=== PATIENT | male | born 1950 | race Caucasian/White ===

== ENCOUNTER → 2017-02-06 | Outpatient (CLI) | payer MEDICARE ==
--- NOTE | 2017-02-09 07:41 | RAD ---
EXAM DESCRIPTION: Shoulder,Left 2 or More Views CLINICAL HISTORY: SHOULDER PN COMPARISON: None Available. TECHNIQUE: Four views of the left shoulder. FINDINGS: Advanced glenohumeral degenerative arthropathy with subchondral sclerosis and joint space narrowing as well as marginal osteophytes is present. No fracture or dislocation is seen. The AC joint is normally aligned. IMPRESSION: 1. Advanced degenerative changes left shoulder without acute fracture. Electronically signed by: Quirino Bonner MD 02/09/2017 7:40 AM CDT
== END | disposition home or self-care (01) ==
LOC: RAD 08:19
PROVIDERS: ATTEND Orthopaedic Surgery
DX: M25.512 Pain in left shoulder (principal)

== ENCOUNTER → 2017-02-09 | Outpatient (CLI) | payer MEDICARE ==
--- NOTE | 2017-02-09 18:52 | MRI ---
Procedure: MR SHOULDER WITHOUT IV CONTRAST Exam Date: 02/09/2017 12:00 AM CDT Ordering Provider: DANIEL GONZALEZ Clinical Indication: ROTATOR CUFF SYNDROME Comparison: None TECHNIQUE: Multiplanar, multi sequence MRI images of the left shoulder were obtained without intra-articular contrast. FINDINGS: Thinning of the supraspinatus and infraspinatus tendons yet no discrete tear. There is also partial interstitial tearing of the distal subscapularis tendon without full thickness component or retraction. Rotator cuff musculature demonstrates normal bulk yet there is increased edema signal seen within the supraspinatus more so than infraspinatus suggestive of muscular strain.. Marked resorptive cyst seen within the greater tuberosity. There is also full-thickness chondrosis seen within the superior humeral head with subtle subchondral cystic change and flattening of the superior humeral head. Findings are worrisome for early changes of avascular necrosis. There is also a large marginal rim osteophytes extending off the inferomedial humeral head. There is full-thickness chondrosis seen within the glenoid fossa as well with a type II B glenoid morphology. There is associated glenohumeral joint effusion and synovitis. Long head of the biceps is well situated within the intertubercular groove. Biceps labral anchor is intact. Diffuse labral degeneration is noted. Moderate degenerative changes of the acromioclavicular joint. No fluid seen within the subdeltoid/subacromial bursa. Type 2 acromion is noted. Glenohumeral joint cartilage is intact. No large joint effusion or loose body. Marrow signal is otherwise unremarkable without fracture or subluxation. IMPRESSION: 1. Moderate to advanced glenohumeral joint osteoarthritis with subtle findings of early avascular necrosis seen within the superior humeral head. There is a small joint effusion with synovitis also noted. There is glenoid expansion with a type II B glenoid morphology. 2. Partial interstitial tearing of the subscapularis tendon yet no high-grade partial or full-thickness rotator cuff tear. 3. Supraspinous more so than infraspinatus muscular strain. Electronically signed by: Jay Bianchi MD 02/09/2017 6:51 PM CDT
== END | disposition home or self-care (01) ==
LOC: MRI 13:03
PROVIDERS: ATTEND Orthopaedic Surgery
DX: M75.122 Complete rotator cuff tear or rupture of left shoulder, not specified as traumatic (principal)

== ENCOUNTER → 2017-02-23 | Outpatient (CLI) | payer MEDICARE | END | disposition home or self-care (01) | LOC: GMAL 11:20 | PROVIDERS: ATTEND Family Medicine | DX: D51.3 Other dietary vitamin B12 deficiency anemia (principal); R53.83 Other fatigue; E55.9 Vitamin D deficiency, unspecified ==

== ENCOUNTER → 2017-06-09 | Outpatient (CLI) | payer MEDICARE | LOC: GMAL 11:19 | PROVIDERS: ATTEND Family Medicine | DX: D51.3 Other dietary vitamin B12 deficiency anemia (principal); E55.9 Vitamin D deficiency, unspecified ==

== ENCOUNTER 2017-11-15 09:44 | Emergency (ER) | payer MEDICARE ==
[2017-11-15] MEDS ORDERED: KETOROLAC TROMETHAMINE INJ 30 MG/ML VIAL IV ONE (09:59)
[2017-11-15] MEDS ORDERED: SODIUM CHLORIDE 0.9% 1000ML 1,000 ML IVS ONE (10:00)
[2017-11-15] MEDS ORDERED: ONDANSETRON INJ 4 MG/2 ML VIAL IV ONE (10:00)
--- NOTE | 2017-11-15 10:04 | ED.PDOC ---
History of Present Illness - General Chief Complaint: Problem Stated Complaint: R flank discomfort Time Seen by Provider: 11/15/17 09:59 Source: patient Exam Limitations: no limitations - History of Present Illness Initial Comments: RIGHT FLANK PAIN, ONSET FOUR HRS AGO. HE RATES THE PAIN AT 8/10 AND RADIATES TO THE RIGHT LOWER QUADRANT ASSOCIATED WITH NAUSEA AND VOMITING. HE VOICES THAT HE HAS A HX OF KIDNEY STONES AND IT SURE FEELS LIKE ANOTHER ONE. Timing/Duration: just prior to arrival Quality: severe Onset Location: RLQ, right flank Radiation: RLQ Activites at Onset: rest Improving Factors: nothing Worsening Factors: nothing Associated Symptoms: nausea/vomiting Allergies/Adverse Reactions: Allergies Iodine Allergy (Verified 11/15/17 09:54) Home Medications: Ambulatory Orders Ketorolac Tromethamine 10 mg PO TID #15 tab 11/15/17 Ondansetron HCl [Zofran] 4 mg PO Q6HR #8 ml 11/15/17 Tramadol HCl 50 mg PO Q6HR #20 tab 11/15/17 Review of Systems - Review of Systems Constitutional: States: no symptoms reported EENTM: States: no symptoms reported Respiratory: States: no symptoms reported Cardiology: States: no symptoms reported Gastrointestinal/Abdominal: States: abdominal pain, nausea, vomiting Genitourinary: States: dysuria, pain Musculoskeletal: States: no symptoms reported Skin: States: no symptoms reported Neurological: States: no symptoms reported Endocrine: States: no symptoms reported Hematologic/Lymphatic: States: no symptoms reported Past Medical History (General) - Patient Medical History Hx Stroke: No Hx Cardiac Disorders: Yes - Cardiac stents; Hx DVT Hx Congestive Heart Failure: No Hx Hypertension: Yes Hx Diabetes: No Hx Renal Disease: - Hx kidney stones Hx MRSA: No - Vaccination History Hx Influenza Vaccination: Yes - 2017 Hx Pneumococcal Vaccination: Yes - Social History Hx Tobacco Use: No Family Medical History - Family History Father Family History: Unknown Living Status: Physical Exam - Physical Exam General Appearance: Alert, Anxious, Other - MODERATE TO ACUTE DISTRESS Eyes, Ears, Nose, Throat Exam: PERRL/EOMI, normal ENT inspection Neck: non-tender, full range of motion Cardiovascular/Respiratory: regular rate, rhythm, no M/R/G Gastrointestinal/Abdominal: normal bowel sounds, non tender, soft, no organomegaly, no pulsatile mass Rectal Exam: deferred Back Exam: normal inspection, no CVA tenderness, no vertebral tenderness, CVA tenderness (R) Extremity: normal range of motion, non-tender, normal inspection Neurologic: no motor/sensory deficits, alert, normal mood/affect Skin Exam: normal color Lymphatic: no adenopathy Progress - Progress Progress: 11/15/17 11:36 continues with RIGHT FLANK PAIN, THE URINE IS VERY DARK, WILL ORDER CT ABDOMEN AND PELVIS-STONE STUDY 11/15/17 12:30 CT ABDOMEN AND PELVIS REVEALS RIGHT HYDRONEPHROSIS AND THERE IS A SMALL CALCULOUS IN THE RIGHT MID URETER. THE URINE HAD TNTC RBC. THE PATIENT SEEMS MORE AT EASE AFTER 8 MG OF MS. THE PLAN RIGHT NOW IS OBSERVATION AND PAIN CONTROL. IF HE IS ABLE TO TOLERATE THE PAIN WILL PLAN ON DC OTHERWISE WILL DO AN OBSERVATION. 11/15/17 14:11 RE-ASSESED AND HE HAS BEEN SLEEPING FOR THE PAST HOUR. I HAVE SPOKEN WITH THE FAMILY AND THE PATIENT AND WILL TRY OUTPATIENT TREATMENT AND FOLLOW UP WITH DR. MORGAN Departure - Departure Clinical Impression: Kidney calculus Time of Disposition: 14:16 Disposition: Discharge to Home or Self Care Condition: Good Departure Forms: ED Discharge - Pt. Copy, Patient Portal Self Enrollment Instructions: DI for Kidney Stones Diet: resume usual diet Activity: walking as tolerated Referrals: Charles Ibarra III, MD [Primary Care Provider] - 1-2 Weeks DANIEL MORGAN [Referring] - 1-2 Weeks Prescriptions: Ondansetron HCl [Zofran] 4 mg PO Q6HR #8 ml Tramadol HCl 50 mg PO Q6HR #20 tab Ketorolac Tromethamine 10 mg PO TID #15 tab Home Medications: Ambulatory Orders Ketorolac Tromethamine 10 mg PO TID #15 tab 11/15/17 Ondansetron HCl [Zofran] 4 mg PO Q6HR #8 ml 11/15/17 Tramadol HCl 50 mg PO Q6HR #20 tab 11/15/17
[2017-11-15] MEDS ORDERED: MORPHINE SULFATE INJ 10 MG/ML VIAL IV ONE ×2 (10:47→12:04)
[2017-11-15] MEDS ORDERED: PROMETHAZINE HCL INJ 25 MG/ML VIAL IM ONE (12:05)
--- NOTE | 2017-11-15 12:17 | CT ---
PROCEDURE: Abdoment/Pelvis w/o Contrast HISTORY: right flank pain, stone study Indication: Same as above Comparison: None Technique: CT of the abdomen and pelvis was done without intravenous contrast. Images were obtained from the lung base to the level of the pubic symphysis in axial plane, followed by orthogonal sagittal and coronal reconstruction. Oral contrast was not given for the study. This exam was performed according to our departmental dose-optimization program, which includes automated exposure control, adjustment of the mA and/or KV according to the patient's size and/or use of iterative reconstruction technique. FINDINGS: Images through the lung bases do not show any focal infiltrates or pleural effusions. There is presence of a small calculus in the neck of the gallbladder. There is presence of multiple bilateral subcentimeter nonobstructive renal calculi. There is right-sided hydroureteronephrosis to the level of 5 mm right mid abdominal ureteral calculus seen at L3 vertebral mid body level The liver, pancreas, spleen and the bilateral adrenal glands appear unremarkable, given the limitation of lack of intravenous contrast. The urinary bladder is unremarkable, without any evidence of wall thickening, calculi or filling defects. The small bowel appears unremarkable, without any evidence of small bowel obstruction or bowel wall thickening. There is no CT evidence of acute appendicitis, pericecal inflammatory change or ileocecal mesenteric adenitis. The ileocecal junction appears unremarkable. There is no CT evidence of acute colonic diverticulitis or colitis or large bowel obstruction. There is large bowel diverticulosis There is no pathological lymphadenopathy in the retroperitoneum or in the pelvic region. There is no evidence of free fluid or free air in the abdomen or the pelvic region. There is no clinically significant abdominal aortic aneurysm. There is presence of a vascular stent in the left common and external iliac arteries Fat-containing right inguinal hernia is noted The visualized lumbar spine shows multilevel degenerative change and grade 1 anterolisthesis of L4 at L5. The paravertebral soft tissues are unremarkable. The remainder of the pelvic structures are unremarkable. IMPRESSION: There is presence of a small calculus in the neck of the gallbladder. There is presence of multiple bilateral subcentimeter nonobstructive renal calculi. There is right-sided hydroureteronephrosis to the level of 5 mm right mid abdominal ureteral calculus seen at L3 vertebral mid body level Electronically signed by: Pankaj Woodard MD 11/15/2017 12:16 PM CDT Workstation: [id number]
[2017-11-15 14:55] VITALS: O2SAT 98
[2017-11-15 15:26] VITALS: BP 137/78; TEMP 97
== END 2017-11-15 15:10 | disposition home or self-care (01) ==
LOC: ER 09:44
DX: N13.2 Hydronephrosis with renal and ureteral calculous obstruction (principal); Z91.041 Radiographic dye allergy status; I10 Essential (primary) hypertension; Z95.5 Presence of coronary angioplasty implant and graft; Z86.718 Personal history of other venous thrombosis and embolism
CPT/HCPCS: 36415; 74176; 80053; 81001; 85025; 87086; J1885; J2270; J2405; J2550; J7030

== ENCOUNTER → 2018-04-26 | Outpatient (CLI) | payer MEDICARE | LOC: GMATM 17:43 | PROVIDERS: ATTEND Nurse Practitioner Family | DX: R10.84 Generalized abdominal pain (principal) ==

== ENCOUNTER 2018-05-03 10:35 | Observation (INO) | payer MEDICARE ==
--- NOTE | 2018-05-03 10:56 | HP ---
SUPERVISING PHYSICIAN: Warren Shields MD CHIEF COMPLAINT: Weakness, dehydration. HISTORY OF PRESENT ILLNESS: Mr. Alvarez is a 67 year-old patient of Dr. Ibarra. He has been having frequent diarrhea daily for well over 2 weeks, associated with some nausea. He has been in to see Dr. Ibarra several times in the last few weeks and has had 3 rounds of infusions of fluids at [facility] for dehydration. His diarrhea has been persistent and Dr. Ibarra has been working the patient up with local studies. Dr. Ibarra requested the patient be placed in observation today as he was seen in the office in the morning and found again to be weak and have positive tilts and vital signs. The patient is now going to placed in observation for dehydration and fluid therapy. PAST MEDICAL HISTORY: 1. Paroxysmal atrial fibrillation on Xarelto. 2. Coronary artery disease. 3. 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 4. Left leg post thrombotic syndrome. 5. Hyperlipidemia. 6. History and physical. 7. Diabetes mellitus type 2 on oral therapy. 8. History of trigeminal neuralgia. 9. Hypertension with last echocardiogram June 23, 2017 showing a grade 1 diastolic dysfunction with an ejection fraction of 55%. PAST SURGICAL HISTORY: 1. Total right knee replacement in 2010. 2. Pin to left thigh in 2011. 3. Coronary stints to the circumflex in 2012. 4. Nerve avulsion for tridermal neuralgia in 2014. 5. Carpal tunnel release. 6. IVC filter replacement in 2010 due to left leg deep venous thrombosis and retrieval in 2015. 7. L4 to L5 microdiscectomy and rhizotomy. 8. Cataract extractions. 9. Hernia repair. CURRENT MEDICATIONS: 1. Simvastatin 40 mg daily. 2. Nystatin swish and swallow, 100,000 units q.i.d. 3. Nitrostat 0.4 mg every 15 minutes as needed. 4. Metformin 850 mg b.i.d. 5. Vitamin B12, 1000 mg daily. 6. Ciprofloxacin 500 mg b.i.d. 7. Vitamin D3, 1000 units daily. 8. Carvedilol 3.125 mg daily. 9. Hydrochlorothiazide 12.5 mg p.o. Thursday, Thursday, Thursday. 10. Hydrochlorothiazide 25 mg Thursday, Thursday, and Thursday. 11. Xarelto 20 mg daily. 12. Zofran 4 mg daily. ALLERGIES: Iodine, Tramadol, Lisinopril, Penicillin. FAMILY HISTORY: Father at age 67 due to brain cancer. Mother at age 95, advanced age. He has one sister who is , cancer at age 31. He has 3 sons, one with diabetes and 4-vessel CABG. One is healthy and one has spina bifida. He has one daughter that is healthy. 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 He is . He has 4 children. He does not drink alcohol, never has. He does have a past history of smoking cigarettes but quit in 1981. He smoked approximately one pack per day for 12 years. REVIEW OF SYSTEMS: CONSTITUTIONAL: Positive for general malaise, negative for fevers,chills, unintentional weight loss. HEENT: Negative for sore throat, earaches, nasal congestion, vision changes. RESPIRATORY: Negative for shortness of breath, coughing, wheezing. CARDIAC: Negative for chest pains, palpitations, syncopal episodes or pedal edema or exertional dyspnea. GASTROINTESTINAL: As noted in the history of present illness. Positive for frequent episodes of diarrhea for over 2 weeks with some nausea. Denies any emesis. Negative for any hematochezia, abdominal pains or constipation. GENITOURINARY: Negative for dysuria, hematuria or polyuria. NEUROLOGICAL: Negative for ataxia, syncopal episodes, seizure activity, paresthesias or other neurological deficits. PHYSICAL EXAMINATION: VITAL SIGNS: Temperature 97.7, pulse 90, blood pressure 147/88, respirations 16, saturation 96% on room air. Admission weight 105.5. BMI was 20.7. GENERAL: The patient is ill-appearing and tired in presentation but appears to be in no acute distress and he is alert. HEENT: Tympanic membranes clear bilaterally. Oropharynx pink with mildly dry mucous membranes. NECK: Supple, non-tender with full range of motion. No jugular venous distention. CHEST: Lungs clear to auscultation without any notable rhonchi, wheezes or rales. CARDIOVASCULAR: Regular rate and rhythm without appreciable murmurs, gallops, or rubs. ABDOMEN: Soft, non-tender, bowel sounds are positive. No peritoneal signs. No rebound tenderness, no port tenderness. EXTREMITIES: Without cyanosis, clubbing, or edema. NEUROLOGIC: He is alert and oriented x3. LABORATORY: CBC showed white count of 6,700, hemoglobin 14.8, hematocrit 44.4, platelet count 128,000. Differential showed to be without a left shift. Chemistries showed a low magnesium at 1.6, low potassium at 3.3. Otherwise, all electrolytes within normal limits. BUN 11, creatinine 1.02, calcium 9.1. Liver functions all showing to be within normal limits. Urinalysis showed a small amount of blood with 3 to 5 RBCs on microscopic exam. ASSESSMENT: 1. Persistent diarrhea likely viral gastroenteritis having been extensively worked up as an outpatient by Dr. Ibarra. 2. Recurring dehydration due to #1 requiring parenteral IV therapy. 3. Positive tilt vital signs secondary to #2. 4. History of hypertension with positive tilt as noted above with echocardiogram in 2018 with a grade 1 diastolic dysfunction and ejection fraction of 55%. 5. Diabetes mellitus type 2 on oral therapy. 6. History of paroxysmal atrial fibrillation. 7. History of deep venous thrombosis of left femoral and popliteal veins due to mechanical thrombosis with residual left leg post thrombotic syndrome on chronic anticoagulation with Xarelto. 8. History of hyperlipidemia. 9. History of trigeminal neuralgia. 10. Electrolyte imbalance to include hypokalemia and hypomagnesemia secondary to persistent diarrhea due to viral gastroenteritis as noted in #1. PLAN: The patient is going to be placed in observation. We will start him on some IV fluid therapy for dehydration. I will go ahead and give him normal saline bolus at 1 liter and will continue fluids with half normal saline with 20 of potassium at 150 and monitor his urine output closely. We will provide Zofran for any nausea. We will continue on Xarelto for DVT prophylaxis and will start him on insulin sliding scale per protocol. Will anticipate length of stay to be at least 1 to 2 days with possible discharge tomorrow as long as the patient remains afebrile and has no significant clinical changes and no longer having any positive tilt vital signs. Once discharged, he will need to continue to followup with Dr. Ibarra. Until the, we will continue to monitor and treat as necessary. #[id number] [facility]
[2018-05-03] MEDS ORDERED: ACETAMINOPHEN 325 MG TAB PO PRN (11:21)
[2018-05-03] MEDS ORDERED: SODIUM CHLORIDE 0.9% (FLUSH) 10 ML SYG IV PRN (11:21)
[2018-05-03] MEDS ORDERED: IV SET AND CAP CHANGE INJ INJ SCH (11:30)
[2018-05-03] MEDS ORDERED: DEXTROSE 50% 25 GM/50 ML SYG IV PRN (11:54)
[2018-05-03] MEDS ORDERED: GLUCAGON INJ 1 MG VIAL SUBCU PRN (11:54)
[2018-05-03] MEDS ORDERED: SODIUM CHLORIDE 0.9% 1000ML 1,000 ML IVS ONE (12:05)
[2018-05-03] MEDS ORDERED: MAGNESIUM SULFATE PREMIX 2GM 2 GM in PREMIX BAG 1 BAG IVPB ONE (13:37)
[2018-05-03] MEDS ORDERED: MAGNESIUM SULFATE PREMIX 2GM 50 ML IVPB ONE (13:45)
[2018-05-03] MEDS: KCL 20MEQ/0.45% NS 1,000 ML IVS PRN ×2 (14:10→22:58)
[2018-05-03] MEDS: INSULIN LISPRO 100 UNITS/ML PEN SUBCU SCH ×2 (17:49→21:01)
[2018-05-03] MEDS: CIPROFLOXACIN 500 MG TAB PO SCH (20:59)
[2018-05-03] MEDS: CARVEDILOL 3.125 MG TAB PO SCH (20:59)
[2018-05-03] MEDS ORDERED: NON-FORMULARY MEDICATION 1 EA MIS (Metformin Hcl [Metformin Hcl] 850 MG) PO SCH (21:00)
[2018-05-03] MEDS: ONDANSETRON INJ 4 MG/2 ML VIAL IV PRN (23:51)
[2018-05-04] MEDS: INSULIN LISPRO 100 UNITS/ML PEN SUBCU SCH ×2 (07:01→12:41)
[2018-05-04] MEDS ORDERED: RIVAROXABAN 10 MG TAB ONE (07:03)
[2018-05-04] MEDS ORDERED: SIMVASTATIN 20 MG TAB ONE (07:04)
[2018-05-04] MEDS: KCL 20MEQ/0.45% NS 1,000 ML IVS PRN (07:12)
[2018-05-04] MEDS: CARVEDILOL 3.125 MG TAB PO SCH (08:43)
[2018-05-04] MEDS: CIPROFLOXACIN 500 MG TAB PO SCH (08:43)
[2018-05-04] MEDS ORDERED: metFORMIN HCL 500 MG TAB PO SCH (08:45)
[2018-05-04 09:46] VITALS: BP 134/81; TEMP 98.4; O2SAT 96
[2018-05-04] MEDS: ONDANSETRON INJ 4 MG/2 ML VIAL IV PRN (10:08)
[2018-05-04] MEDS ORDERED: RIVAROXABAN 10 MG TAB PO SCH (12:00)
[2018-05-04] MEDS ORDERED: SIMVASTATIN 20 MG TAB PO SCH (21:00)
--- NOTE | 2018-05-24 15:30 | DS ---
SUPERVISING PHYSICIAN: Vernon Shields MD ADMISSION DIAGNOSIS: 1. Persistent diarrhea, possibly related to viral gastroenteritis. 2. Recurring dehydration due to #1, requiring parenteral IV therapy. 3. Positive tilt vital signs secondary to #2. 4. History of hypertension with positive tilt as noted with echocardiogram in 2018 showing a grade 1 diastolic dysfunction and ejection fraction of 55%. 5. Diabetes mellitus, type 2, on oral therapy. 6. History of paroxysmal atrial fibrillation. 7. History of deep venous thrombosis of left femoral and popliteal veins due to mechanical thrombosis with the patient continued on Xarelto. 8. History of hyperlipidemia. 9. History of trigeminal neuralgia. 10. Electrolyte imbalance to include hypokalemia and hypomagnesemia secondary to persistent diarrhea. DISCHARGE DIAGNOSIS: 1. Diarrhea secondary to viral gastroenteritis, showing improvement with fluids with the patient being extensively worked up in the outpatient setting. 2. Dehydration secondary to #1, improved with IV fluids. 3. History of hypertension with a grade 1 diastolic dysfunction and last echocardiogram in 2018 showing ejection fraction of 55%. 4. Electrolyte imbalance to include hypokalemia, hypomagnesemia, resolved with fluids, felt to be from diarrhea due to the viral gastroenteritis. 5. Diabetes mellitus, type 2, on oral therapy. 6. History of paroxysmal atrial fibrillation. 7. History of previous deep venous thrombosis of left femoral and popliteal veins due to mechanical thrombosis with residual left leg post thrombotic syndrome with the patient on chronic anticoagulation with Xarelto. 8. History of hyperlipidemia. 9. History of trigeminal neuralgia. REASON FOR HOSPITALIZATION: Mr. Alvarez is a 67 year-old patient of Dr. Ibarra. He has been having frequent diarrhea daily for well over 2 weeks, associated with some nausea. He has been in to see Dr. Ibarra several times in the last few weeks and has had 3 rounds of infusions of fluids at [facility] for dehydration. His diarrhea has been persistent and Dr. Ibarra has been working the patient up with local studies. Dr. Ibarra requested the patient be placed in observation today as he was seen in the office in the morning and found again to be weak and have positive tilts and vital signs. The patient was placed in observation for dehydration and fluid therapy. LABORATORY: CBC showed normal white count of 6,700. Differential was without a left shift. Hemoglobin 14.8, hematocrit 44.4, platelet count 128,000. Chemistries on admission showed mild hypokalemia with 3.3 potassium. After fluids and at discharge, it had normalized to 3.6. Creatinine and BUN were within normal limits. At discharge, BUN was 9, creatinine was 0.8. Blood sugars ranged between 115 and 187. Magnesium was low at 1.6. After replacement and before discharge, it had normalized to 1.9. Liver functions were all within normal limits. Urinalysis showed a small amount of blood with microscopic showing 3 to 5 RBC. There were no additional radiographic or microbiologic specimens submitted. HOSPITAL COURSE: Mr. Alvarez was placed in observation secondary to viral gastroenteritis. He failed to respond to outpatient treatment plan and was having positive tilt. Dr. Ibrara requested he be placed in observation for continued fluid management. He was given IV fluids. He improved clinically and was no longer having any positive tilt vital signs. Therefore, he was felt clinically well enough to continue with outpatient management. PLAN: Mr. Alvarez was discharged on 05/04/18 with instructions to follow up with Dr. Ibarra as scheduled in 2 weeks. He was to encourage fluids to prevent further dehydration. He was encouraged to advance his activity levels slowly to prevent any complications from syncopal episodes. He was told to resume his home medications as prior to hospitalization and given warnings to return to the hospital should he have any worsening symptoms. No new medications were prescribed at discharge. DISPOSITION: The patient was discharged home. CONDITION AT DISCHARGE: Stable and improved. #[id number] [facility]
== END 2018-05-04 13:30 | disposition home or self-care (01) ==
LOC: MS 10:35
PROVIDERS: ADMIT Nurse Practitioner Family; ATTEND Nurse Practitioner Family
DX: A08.4 Viral intestinal infection, unspecified (principal); E86.0 Dehydration; E83.42 Hypomagnesemia; E87.6 Hypokalemia; E87.8 Other disorders of electrolyte and fluid balance, not elsewhere classified; I10 Essential (primary) hypertension; I95.1 Orthostatic hypotension; E11.9 Type 2 diabetes mellitus without complications; I48.0 Paroxysmal atrial fibrillation; E78.5 Hyperlipidemia, unspecified; G50.0 Trigeminal neuralgia; I25.10 Atherosclerotic heart disease of native coronary artery without angina pectoris; Z79.01 Long term (current) use of anticoagulants; Z79.84 Long term (current) use of oral hypoglycemic drugs; Z79.899 Other long term (current) drug therapy; Z86.718 Personal history of other venous thrombosis and embolism; Z96.651 Presence of right artificial knee joint; Z95.5 Presence of coronary angioplasty implant and graft; Z87.891 Personal history of nicotine dependence; Z88.0 Allergy status to penicillin; Z88.6 Allergy status to analgesic agent; Z88.8 Allergy status to other drugs, medicaments and biological substances
CPT/HCPCS: J2405 ×2; J7030; J3475; J3480 ×3; 80048; 80053; 82948 ×4; 36415 ×2; 81001; 85025; 83735 ×2; 36416 ×3; 94760 ×2; G0378

== ENCOUNTER → 2018-05-10 | Outpatient (CLI) | payer MEDICARE | LOC: GMAL 15:23 | PROVIDERS: ATTEND Family Medicine | DX: E86.0 Dehydration (principal) ==

== ENCOUNTER 2018-07-12 09:50 | Emergency (ER) | payer MEDICARE ==
[2018-07-12 10:01] VITALS: TEMP 97.6
[2018-07-12] MEDS ORDERED: KETOROLAC TROMETHAMINE INJ 30 MG/ML VIAL ONE (10:15)
[2018-07-12] MEDS ORDERED: TAMSULOSIN 0.4 MG CAP ONE (10:15)
[2018-07-12] MEDS ORDERED: ONDANSETRON INJ 4 MG/2 ML VIAL ONE (10:15)
[2018-07-12] MEDS ORDERED: MORPHINE SULFATE INJ 10 MG/ML VIAL ONE (10:15)
[2018-07-12] MEDS ORDERED: TAMSULOSIN 0.4 MG CAP PO ONE (10:23)
[2018-07-12] MEDS ORDERED: KETOROLAC TROMETHAMINE INJ 30 MG/ML VIAL IV ONE (10:23)
[2018-07-12] MEDS ORDERED: MORPHINE SULFATE INJ 10 MG/ML VIAL IV ONE (10:23)
[2018-07-12] MEDS ORDERED: ONDANSETRON INJ 4 MG/2 ML VIAL IV ONE (10:23)
[2018-07-12] MEDS ORDERED: SODIUM CHLORIDE 0.9% 1000ML 1,000 ML IVS ONE (10:23)
--- NOTE | 2018-07-12 10:23 | ED.PDOC ---
History of Present Illness - General Chief Complaint: Problem Stated Complaint: left flank and abdominal pain Time Seen by Provider: 07/12/18 10:22 Source: patient Exam Limitations: no limitations - History of Present Illness Initial Comments: Esau Alvarez 67 y/o male came to ER with dull left flank pain radiating to hi LLQ and groinleft since last night stating getting worse,felt also nauseated ,no vomiting,no fever ,no chills denies hematuria dysuria,constipation.Had multiple kidney stones ER visit in the past stating sometimes spontaneously passed it out and also had lithotripsy in the past. Timing/Duration: yesterday Quality: moderate, dull Onset Location: left flank Radiation: groin Activites at Onset: none Prior abdominal problems: similar symptoms Sexual intercourse history: not active Improving Factors: nothing Worsening Factors: nothing Associated Symptoms: other - see hpi Allergies/Adverse Reactions: Allergies Iodine Allergy (Verified 11/15/17 09:54) Tramadol Allergy (Verified 05/03/18 11:41) Lisinopril Adverse Reaction (Verified 05/03/18 11:41) Penicillins Adverse Reaction (Verified 05/03/18 11:41) Home Medications: Ambulatory Orders Carvedilol 3.125 mg PO BID 05/03/18 Cholecalciferol [Vitamin D3] 1,000 unit PO DAILY 05/03/18 Cyanocobalamin [Vitamin B-12] 1,000 mcg PO DAILY 05/03/18 Metformin HCl 850 mg PO BID 05/03/18 Nitroglycerin [Nitrostat] 0.4 mg SL Q5MIN PRN 05/03/18 Ondansetron HCl 8 mg PO Q8HR PRN 05/03/18 Rivaroxaban [Xarelto] 20 mg PO DAILY 05/03/18 Simvastatin 40 mg PO DAILY 05/03/18 Acetaminophen W/ Codeine [Tylenol w/Codeine 300-30 mg] 1 tab PO Q4HR PRN #20 tab 07/12/18 Tamsulosin HCl [Flomax] 0.4 mg PO DAILY 10 Days #10 cap 07/12/18 Review of Systems - Review of Systems Constitutional: States: no symptoms reported EENTM: States: no symptoms reported Respiratory: States: no symptoms reported Cardiology: States: no symptoms reported Gastrointestinal/Abdominal: States: no symptoms reported Genitourinary: States: see HPI All other Systems: Reviewed and Negative, No Change from Baseline Past Medical History (General) - Patient Medical History Hx Seizures: No Hx Stroke: No Hx Asthma: No Hx of COPD: No Hx Cardiac Disorders: Yes - Cardiac stents; Hx DVT Hx Congestive Heart Failure: No Hx Pacemaker: No Hx Hypertension: No Hx Diabetes: Yes - take metformin Hx Renal Disease: - Hx kidney stones Hx MRSA: No Hx Other PMH: Yes - PAD Surgical History: other - knee ankle,CTS,cardiac stent,stent left thigh - Vaccination History Hx Influenza Vaccination: Yes - 2017 Hx Pneumococcal Vaccination: Yes - Social History Hx Tobacco Use: No Hx Alcohol Use: No Hx Substance Use: No Hx Physical Abuse: No Hx Emotional Abuse: No Family Medical History - Family History Father Family History: Unknown Living Status: Hx Family Cancer: Yes - dad-brain Physical Exam - Physical Exam General Appearance: Alert, Comfortable, No apparent distress Eyes, Ears, Nose, Throat Exam: normal ENT inspection Neck: non-tender, full range of motion, supple, normal inspection Cardiovascular/Respiratory: regular rate, rhythm, no M/R/G, normal peripheral pulses, no JVD Gastrointestinal/Abdominal: normal bowel sounds, non tender, soft, no organomegaly Back Exam: no CVA tenderness, no vertebral tenderness Extremity: no pedal edema, no calf tenderness Neurologic: no motor/sensory deficits, alert Skin Exam: normal color, warm/dry Lymphatic: no adenopathy Progress - Progress Progress: 07/12/18 11:09 Vital Signs - 8 hr 07/12/18 09:55 Temperature 97.6 F Pulse Rate [ 74 left brachial] Respiratory 20 Rate Blood Pressure 175/98 [left brachial] 07/12/18 12:27 Discuss all test result with patient that he needs follow up with his primary md for referral to Urologist-kidney stone and Surgeon-gallstone. - Results/Orders Results/Orders: 07/12/18 10:23 IV Care:Saline Lock per Protoc QSHIFT 07/12/18 12:15 BOLUS Sodium Chloride 0.9% 500Ml [NS 500ml] 500 ml IVS ONCE Laboratory Results - last 24 hr 07/12/18 07/12/18 10:20 11:12 WBC 6.9 RBC 5.20 Hgb 15.8 Hct 47.1 MCV 90.7 MCH 30.3 MCHC 33.5 RDW 13.6 Plt Count 127 L MPV 9.5 Absolute Neuts (auto) 4.90 Absolute Lymphs (auto) 1.00 Absolute Monos (auto) 0.70 Absolute Eos (auto) 0.20 Absolute Basos (auto) 0.00 Neutrophils % 71.7 Lymphocytes % 14.7 L Monocytes % 10.4 H Eosinophils % 2.5 Basophils % 0.7 PT 9.7 INR 0.97 PTT (SP) 25.7 Sodium 139 Potassium 3.5 L Chloride 105 Carbon Dioxide 24 Anion Gap 13.5 BUN 16 Creatinine 1.18 BUN/Creatinine Ratio 13.6 Random Glucose 194 H Serum Osmolality 284.0 Calcium 9.2 Magnesium 1.7 L Total Bilirubin 0.7 Direct Bilirubin 0.2 Indirect Bilirubin 0.5 AST 17 ALT 17 Alkaline Phosphatase 55 Creatine Kinase 48 CK-MB (CK-2) 1.9 CK-MB (CK-2) % Not Reportable Troponin I < 0.02 Serum Total Protein 6.9 Albumin 3.8 Urine Color Yellow Urine Appearance Clear Urine pH 5.5 Ur Specific [place] >= 1.030 Urine Protein 30 Urine Glucose (UA) 250 H Urine Ketones Trace Urine Blood Large H Urine Nitrite Negative Urine Bilirubin Negative Urine Urobilinogen 0.2 Ur Leukocyte Esterase Negative Urine RBC 20-30 H Urine WBC 0-1 Ur Epithelial Cells 0 Urine Bacteria 0 Urine Mucus Trace - EKG/XRAY/CT CT Ordered: Yes - x 2- 5mm left mid ureteral calculus Departure - Departure Clinical Impression: Left ureteral calculus, Flank pain, acute, Kidney calculus Cholelithiasis Qualifiers: Cholelithiasis location: gallbladder Cholecystitis presence: without cholecystitis Biliary obstruction: without biliary obstruction Qualified Code(s): K80.20 - Calculus of gallbladder without cholecystitis without o bstruction Time of Disposition: 12:19 Disposition: Discharge to Home or Self Care Condition: Fair Departure Forms: ED Discharge - Pt. Copy, Patient Portal Self Enrollment Instructions: DI for Kidney Stones, Gallstones (DC), Gallstones, How to Strain Your Urine Referrals: Charles Ibarra III, MD [Primary Care Provider] - 1-2 Weeks Prescriptions: Acetaminophen W/ Codeine [Tylenol w/Codeine 300-30 mg] 1 tab PO Q4HR PRN #20 tab PRN Reason: Pain Tamsulosin HCl [Flomax] 0.4 mg PO DAILY 10 Days #10 cap Home Medications: Ambulatory Orders Carvedilol 3.125 mg PO BID 05/03/18 Cholecalciferol [Vitamin D3] 1,000 unit PO DAILY 05/03/18 Cyanocobalamin [Vitamin B-12] 1,000 mcg PO DAILY 05/03/18 Metformin HCl 850 mg PO BID 05/03/18 Nitroglycerin [Nitrostat] 0.4 mg SL Q5MIN PRN 05/03/18 Ondansetron HCl 8 mg PO Q8HR PRN 05/03/18 Rivaroxaban [Xarelto] 20 mg PO DAILY 05/03/18 Simvastatin 40 mg PO DAILY 05/03/18 Acetaminophen W/ Codeine [Tylenol w/Codeine 300-30 mg] 1 tab PO Q4HR PRN #20 tab 07/12/18 Tamsulosin HCl [Flomax] 0.4 mg PO DAILY 10 Days #10 cap 07/12/18 Additional Instructions: continue with all home medications;Follow up with your primary Md for referral to Urologist for evaluation /management of your kidney stone;Follow up with Dr. Mathews -Surgeon for evaluation of gallstone.
--- NOTE | 2018-07-12 11:02 | CT ---
EXAM DESCRIPTION: Abdoment/Pelvis w/o Contrast CLINICAL HISTORY: left flank pain COMPARISON: November 15, 2017 TECHNIQUE: Noncontrast transaxial CT images of the abdomen and pelvis are obtained. This exam was performed according to our departmental dose-optimization program, which includes automated exposure control, adjustment of the mA and/or kV according to patient size and/or use of iterative reconstruction technique . FINDINGS: Visualized lung bases show chronic appearing interstitial thickening with mild centrilobular emphysematous changes. The heart is enlarged. Severe coronary artery calcifications are seen. Given the limitations of a noncontrast exam the liver, spleen, pancreas, and adrenal glands are unremarkable. 7 mm calcification in the gallbladder fundus is increased size compared to previous without gallbladder wall thickening or inflammatory changes. No biliary tract obstruction. Moderate fatty infiltration of the head and neck of the pancreas is also noted. Mild calcific atherosclerotic disease. 5 mm nonobstructing calcification in the posterior mid to lower pole calyx of the right kidney is increased size compared to previous exam. Several punctate less than 2 mm nonobstructing calcifications are seen in the anterior midpole calyces of the left kidney. There is new left hydronephrosis secondary to at least 2 calcifications in the mid ureter measuring 4.5 and 5 mm identified at the level of L4 resulting in mild to moderate left hydronephrosis. Mild perinephric fat stranding is seen. The more distal left ureter is unremarkable. Fluid attenuation cortical cyst in the midpole left kidney measuring 18 mm is seen. Urinary bladder is poorly distended. Mild prostate calcifications are seen. Fat-containing right inguinal hernia seen. The appendix is within normal limits. Stomach is poorly distended but unremarkable. No small bowel obstruction or bowel wall thickening is seen. Moderate scattered diverticuli of the colon are seen without associated inflammatory changes or fluid collections. Osseous structures show no aggressive bony lesions. Moderate disc degenerative changes with moderate to severe facet arthropathy of the lumbar spine is seen. Degenerative grade 1 anterolisthesis and spinal canal stenosis at L4-5 with foraminal encroachment is seen. IMPRESSION: Interval mild/moderate left hydronephrosis is seen secondary to 2 adjacent 5 mm calcifications in the mid left ureter. Nonobstructing bilateral nephrolithiasis. Cholelithiasis. Mild left perinephric fat is maintained. Colon diverticulosis without CT evidence of acute diverticulitis. Electronically signed by: Luis Alberto Ross MD 07/12/2018 10:58 AM CDT
[2018-07-12] MEDS ORDERED: SODIUM CHLORIDE 0.9% 500ML 500 ML IVS ONE (12:15)
[2018-07-12] MEDS ORDERED: PROMETHAZINE TAB (ER DISP) 25 MG TAB PO ONE (12:15)
[2018-07-12] MEDS ORDERED: HYDROcodone 10MG/APAP 325MG 1 EA TAB PO ONE (12:15)
[2018-07-12 16:57] VITALS: BP 121/78; O2SAT 94
== END 2018-07-12 13:15 | disposition home or self-care (01) ==
LOC: ER 09:50
DX: N13.2 Hydronephrosis with renal and ureteral calculous obstruction (principal); K80.20 Calculus of gallbladder without cholecystitis without obstruction; I51.9 Heart disease, unspecified; E11.9 Type 2 diabetes mellitus without complications; Z95.5 Presence of coronary angioplasty implant and graft; Z79.84 Long term (current) use of oral hypoglycemic drugs; Z79.899 Other long term (current) drug therapy; Z86.718 Personal history of other venous thrombosis and embolism; Z91.041 Radiographic dye allergy status; Z88.5 Allergy status to narcotic agent; Z88.8 Allergy status to other drugs, medicaments and biological substances; Z88.0 Allergy status to penicillin; Z87.442 Personal history of urinary calculi
CPT/HCPCS: 74176; 80048; 80076; 81001; 82550; 82553; 84484; 85025; 85610; 85730; J1885; J2270; J2405; J7030; J7040

== ENCOUNTER → 2018-08-17 | Outpatient (CLI) | payer MEDICARE | LOC: GMAL 12:02 | PROVIDERS: ATTEND Family Medicine | DX: E29.8 Other testicular dysfunction (principal) ==

== ENCOUNTER → 2018-10-13 | Outpatient (CLI) | payer MEDICARE ==
--- NOTE | 2018-10-13 11:35 | MRI ---
MRI left shoulder without contrast INDICATION: Primary osteoarthrosis shoulder pain chronic TECHNIQUE: Noncontrast MR imaging left shoulder FINDINGS: Moderate to severe hypertrophic AC joint osteoarthrosis. Severe glenohumeral osteoarthrosis with diffuse labral degeneration. Mild subacromial and subdeltoid bursitis. High-grade insertional interstitial partial tear junctional supraspinatus/infraspinatus with interstitial infraspinatus delamination. Prominent intraosseous cystic change in the posterior lateral humerus. Mild cystic changes also noted in the superior glenoid. Mild subacromial and subdeltoid bursitis. Mild grade 1-2 fatty marbling throughout the rotator cuff muscle bellies. Mild interstitial partial tear distal subscapularis tendon. Prominent fluid/cystic change along the bicep tendon sheath indicating tendon tenosynovitis. There is retroversion of the glenoid with slight posterior decentering of the humerus. No acute dislocation or fracture IMPRESSION: Advanced glenohumeral osteoarthrosis left shoulder with diffuse degenerative labral tear Fairly severe AC joint osteoarthrosis High-grade interstitial partial tear infraspinatus to the junction with the supraspinatus Long head bicep tenosynovitis Tendinosis and mild interstitial partial tear distal subscapularis tendon without retraction Electronically signed by: Guzman Ashton MD 10/13/2018 11:33 AM CDT
== END ==
LOC: MRI 09:56
PROVIDERS: ATTEND Orthopaedic Surgery
DX: M75.122 Complete rotator cuff tear or rupture of left shoulder, not specified as traumatic (principal); M19.012 Primary osteoarthritis, left shoulder; M65.812 Other synovitis and tenosynovitis, left shoulder; M75.92 Shoulder lesion, unspecified, left shoulder

== ENCOUNTER → 2018-11-09 | Outpatient (CLI) | payer MEDICARE ==
--- NOTE | 2018-11-09 11:51 | CT ---
PROCEDURE: Upper Extremity CLINICAL HISTORY: 67 years Male OSTEOARTHRITIS OF THE SHOULDER REGION LEFT COMPARISON: Left shoulder MRI 10/13/2018. Left shoulder radiograph 02/06/2017. TECHNIQUE: Extremity CT of the left shoulder is performed with thin-section axial imaging. MPRs are created and reviewed as well. This exam was performed according to our department optimization program which includes automated exposure control, adjustment of the mA and/or kv according to patient size and/or use of iterative reconstruction technique. FINDINGS: BONE AND JOINTS: Severe left glenohumeral joint osteoarthrosis is present with joint space narrowing, subchondral sclerosis and bulky marginal osteophyte formation which is most pronounced along the inferior aspect of the joint. Associated flattening/mild retroversion of the glenoid and flattening of the humeral head. Cystic changes along the medial aspect of the humeral neck measures up to 2.8 cm (likely on a degenerative basis). Moderate left glenohumeral joint osteoarthrosis. Small left-sided shoulder joint effusion with fluid extending to the subscapularis bursa. Fluid distention of the biceps tendon sheath bicipital groove consistent with biceps long head tenosynovitis. No acute displaced fracture or dislocation seen. No suspicious lytic or sclerotic osseous lesion. SOFT TISSUES: Rotator cuff pathology is better characterized on recent MRI. Triple vessel coronary arterial calcifications present with the appearance of coronary arterial stents. Mild left lung subsegmental atelectasis with areas of scarring. Left lung calcified granulomas measuring up to 7 mm (no routine follow-up). IMPRESSION: 1. Severe left glenohumeral joint osteoarthrosis with left shoulder joint effusion. 2. Moderate left acromioclavicular joint osteoarthrosis. Electronically signed by: Sage Novak DO 11/09/2018 11:49 AM CDT
== END ==
LOC: CT 09:00
PROVIDERS: ATTEND Orthopaedic Surgery
DX: M19.012 Primary osteoarthritis, left shoulder (principal)

== ENCOUNTER 2018-11-11 11:27 | Emergency (ER) | payer MEDICARE ==
[2018-11-11] MEDS ORDERED: diphenhydrAMINE HCL 25 MG CAP PO ONE (11:35)
[2018-11-11] MEDS ORDERED: methylPREDNISolone SODIUM SUC 125 MG/2 ML VIAL IV ONE (11:41)
--- NOTE | 2018-11-11 11:45 | ED.PDOC ---
History of Present Illness - General Chief Complaint: Bite: Animal/Insect/Human Stated Complaint: stung on neck by scorpion Time Seen by Provider: 11/11/18 11:36 Source: patient Exam Limitations: no limitations - History of Present Illness Initial Comments: Patient presents after a scorpion stung him on the right cheek 75 minutes [employer]. 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 He has been stung by yellowjackets before with milder but significant reactions. He has no other complaints at this time. No wheezing, dyspnea, nor chest pain. Patient has NIDDM but says he has had prednisone many times at large doses without any problems with his blood sugar. Timing/Duration: 1-3 hours Severity: mild Improving Factors: nothing Worsening Factors: nothing Associated Symptoms: denies symptoms Allergies/Adverse Reactions: Allergies Bee Venom Allergy (Verified 11/11/18 11:32) Iodine Allergy (Verified 11/15/17 09:54) Tramadol Allergy (Verified 05/03/18 11:41) Lisinopril Adverse Reaction (Verified 05/03/18 11:41) Penicillins Adverse Reaction (Verified 05/03/18 11:41) Home Medications: Ambulatory Orders Carvedilol 3.125 mg PO BID 05/03/18 Cholecalciferol [Vitamin D3] 1,000 unit PO DAILY 05/03/18 Cyanocobalamin [Vitamin B-12] 1,000 mcg PO DAILY 05/03/18 Metformin HCl [Metformin Hydrochloride] 850 mg PO BID 05/03/18 Nitroglycerin [Nitrostat] 0.4 mg SL Q5MIN PRN 05/03/18 Rivaroxaban [Xarelto] 20 mg PO DAILY 05/03/18 Simvastatin 40 mg PO DAILY 05/03/18 Hydrochlorothiazide 12.5 mg PO .TUE.SALAS.SAT.SUN 11/11/18 Hydrochlorothiazide 25 mg PO .MO.WE.Thu11/11/18 Review of Systems - Review of Systems Constitutional: States: no symptoms reported EENTM: States: no symptoms reported Respiratory: States: no symptoms reported Cardiology: States: no symptoms reported Gastrointestinal/Abdominal: States: no symptoms reported Genitourinary: States: no symptoms reported Musculoskeletal: States: no symptoms reported Skin: States: no symptoms reported Neurological: States: no symptoms reported Endocrine: States: no symptoms reported Hematologic/Lymphatic: States: no symptoms reported Past Medical History (General) - Patient Medical History Hx Seizures: No Hx Stroke: No Hx Asthma: No Hx of COPD: No Hx Cardiac Disorders: Yes - Cardiac stents; Hx DVT Hx Congestive Heart Failure: No Hx Pacemaker: No Hx Hypertension: No Hx Diabetes: Yes Hx Renal Disease: - Hx kidney stones Hx MRSA: No Surgical History: other - Vaccination History Hx Influenza Vaccination: Yes - 2018 Hx Pneumococcal Vaccination: Yes - 2018 - Social History Hx Tobacco Use: No Hx Alcohol Use: No Hx Substance Use: No Hx Physical Abuse: No Hx Emotional Abuse: No Family Medical History - Family History Father Family History: Unknown Living Status: Hx Family Cancer: Yes - dad-brain Physical Exam - Physical Exam General Appearance: Alert Eye Exam: bilateral normal Ears, Nose, Throat: normal ENT inspection Neck: non-tender, full range of motion, supple Respiratory: lungs clear, normal breath sounds Cardiovascular/Chest: normal peripheral pulses, regular rate, rhythm, no edema Gastrointestinal/Abdominal: normal bowel sounds, non tender, soft Extremity: normal range of motion, non-tender, normal inspection Neurologic: no motor/sensory deficits, alert, normal mood/affect Skin Exam: normal color Lymphatic: no adenopathy Progress - Progress Progress: 11/11/18 13:14 Patient received diphendydramine 25 mg po and ranitidine 150 mg po x one in the E.D. as well as solumedrol 125 mg IM x one. He remained asysmptomatic for his entire stay.Care instructions given. E.R. warnings given. Questions were elicited and answered. Patient voiced understanding and agreement with the plan. Departure - Departure Clinical Impression: Insect bites Disposition: Discharge to Home or Self Care Condition: Good Departure Forms: ED Discharge - Pt. Copy, Patient Portal Self Enrollment Instructions: DI for Insect Bites and Stings Diet: diabetic diet Activity: increase activity as tolerated Referrals: Charles Ibarra III, MD [Primary Care Provider] - 1-2 Weeks Home Medications: Ambulatory Orders Carvedilol 3.125 mg PO BID 05/03/18 Cholecalciferol [Vitamin D3] 1,000 unit PO DAILY 05/03/18 Cyanocobalamin [Vitamin B-12] 1,000 mcg PO DAILY 05/03/18 Metformin HCl [Metformin Hydrochloride] 850 mg PO BID 05/03/18 Nitroglycerin [Nitrostat] 0.4 mg SL Q5MIN PRN 05/03/18 Rivaroxaban [Xarelto] 20 mg PO DAILY 05/03/18 Simvastatin 40 mg PO DAILY 05/03/18 Hydrochlorothiazide 12.5 mg PO .TUE.SALAS.SAT.PARTHA 11/11/18 Hydrochlorothiazide 25 mg PO .MO.WE.Thu11/11/18 Additional Instructions: If you develop fullness in the throat, difficulty swallowing, chest pain, shortness of breath, wheezing or enlarging skin rash, return immediately to the E.R.
[2018-11-11] MEDS ORDERED: methylPREDNISolone SODIUM SUC 125 MG/2 ML VIAL IM ONE (11:50)
[2018-11-11 13:09] VITALS: O2SAT 98
[2018-11-11 13:50] VITALS: BP 138/90; TEMP 96
== END 2018-11-11 13:46 | disposition home or self-care (01) ==
LOC: ER 11:27
DX: T63.2X1A Toxic effect of venom of scorpion, accidental (unintentional), initial encounter (principal); E11.9 Type 2 diabetes mellitus without complications; Z91.030 Bee allergy status; Z95.5 Presence of coronary angioplasty implant and graft; Z86.718 Personal history of other venous thrombosis and embolism; Z79.84 Long term (current) use of oral hypoglycemic drugs; Z79.899 Other long term (current) drug therapy; Z91.041 Radiographic dye allergy status; Z88.5 Allergy status to narcotic agent; Z88.8 Allergy status to other drugs, medicaments and biological substances; Z88.0 Allergy status to penicillin
CPT/HCPCS: J2930; Q0163

== ENCOUNTER → 2018-11-16 | Outpatient (CLI) | payer MEDICARE | LOC: LAB.O 09:41 | PROVIDERS: ATTEND Orthopaedic Surgery | DX: Z01.818 Encounter for other preprocedural examination (principal) ==

== ENCOUNTER → 2018-11-18 | Outpatient (CLI) | payer MEDICARE | LOC: SL 19:20 | PROVIDERS: ATTEND Family Medicine | DX: G47.33 Obstructive sleep apnea (adult) (pediatric) (principal) ==

== ENCOUNTER 2018-12-08 05:26 | Inpatient (IN) | payer MEDICARE ==
[2018-12-08] MEDS ORDERED: PROPOFOL 200 MG/20 ML VIAL IV ONE (07:00)
[2018-12-08] MEDS ORDERED: METOPROLOL TARTRATE INJ 5 MG/5 ML VIAL IV ONE (07:00)
[2018-12-08] MEDS ORDERED: WATER FOR INJ 10 ML VIAL INJ ONE (07:00)
[2018-12-08] MEDS ORDERED: VECURONIUM BROMIDE 10 MG VIAL IV ONE (07:00)
[2018-12-08] MEDS ORDERED: MIDAZOLAM INJ 2 MG/2 ML VIAL ONE (07:42)
[2018-12-08] MEDS ORDERED: LACTATED RINGERS 1,000 ML ONE ×2 (07:42→13:26)
[2018-12-08] MEDS ORDERED: SODIUM CHL 0.9% 100ML MINI-BAG 100 ML IVPB ONE (07:42)
[2018-12-08] MEDS ORDERED: fentaNYL CITRATE INJ 50 MCG/ML AMP ONE ×2 (07:43→11:13)
[2018-12-08] MEDS ORDERED: CLINDAMYCIN IV 900MG 50 ML IVPB ONE ×2 (07:43→08:25)
[2018-12-08] MEDS ORDERED: ceFAZolin SODIUM 1 GM VIAL ONE ×2 (07:43→07:48)
[2018-12-08] MEDS ORDERED: BUPIVACAINE 0.5% 30 ML VIAL INJ ONE (07:46)
[2018-12-08] MEDS ORDERED: BUPIVACAINE LIPOSOME 13.3 MG/ML VIAL INJ ONE ×2 (07:47→08:25)
[2018-12-08] MEDS ORDERED: TRANEXAMIC ACID 1,000 MG/10 ML VIAL ONE ×2 (08:27→08:28)
[2018-12-08] MEDS ORDERED: SODIUM CHLORIDE 0.9% 100ML 100 ML IVPB ONE (08:28)
[2018-12-08] MEDS ORDERED: VANCOMYCIN HCL INJ 1,000 MG VIAL IVPB ONE ×4 (08:29→20:38)
[2018-12-08] MEDS ORDERED: SODIUM CHLORIDE 0.9% 250ML 250 ML ONE ×3 (09:06→20:37)
[2018-12-08] MEDS ORDERED: SUCCINYLCHOLINE CHLORIDE 200 MG/10 ML VIAL ONE (09:31)
[2018-12-08] MEDS: VANCOMYCIN HCL INJ 1,000 MG VIAL IVPB ONE ×2 (10:31→12:25)
[2018-12-08] MEDS: BUPIVACAINE 0.5% 30 ML VIAL INJ ONE ×2 (10:31→12:18)
[2018-12-08] MEDS ORDERED: SODIUM CHLORIDE 0.9% 1000ML 1,000 ML ONE (11:12)
[2018-12-08] MEDS ORDERED: CYCLOBENZAPRINE HCL 10 MG TAB PO PRN (12:37)
[2018-12-08] MEDS ORDERED: BENZOCAINE-MENTH LOZ (CEPACOL) 1 EA LOZ MT PRN (12:37)
[2018-12-08] MEDS ORDERED: NALOXONE HCL INJ 0.4 MG/ML VIAL IV PRN (12:37)
[2018-12-08] MEDS ORDERED: PROMETHAZINE HCL INJ 12.5 MG in SODIUM CHLORIDE 0.9% 50ML 50 ML IVPB PRN (12:37)
[2018-12-08] MEDS ORDERED: TRANEXAMIC ACID INJ 1,000 MG in SODIUM CHLORIDE 0.9% 100ML 100 ML IVPB ONE (12:37)
[2018-12-08] MEDS ORDERED: ZOLPIDEM TARTRATE 5 MG TAB PO PRN (12:37)
[2018-12-08] MEDS ORDERED: MORPHINE SULFATE INJ 10 MG/ML VIAL IM PRN (12:37)
[2018-12-08] MEDS ORDERED: BISACODYL SUPPOSITORY 10 MG PR PRN (12:37)
[2018-12-08] MEDS ORDERED: DEX 5% W/NACL 0.45% 1000ML 1,000 ML IVS PRN (12:37)
[2018-12-08] MEDS ORDERED: SODIUM CHLORIDE 0.9% (FLUSH) 10 ML SYG IV PRN (12:37)
[2018-12-08] MEDS ORDERED: PROMETHAZINE HCL INJ 25 MG in SODIUM CHLORIDE 0.9% 50ML 50 ML IVPB PRN (12:37)
[2018-12-08] MEDS ORDERED: ACETAMINOPHEN 500 MG TAB PO PRN (12:37)
[2018-12-08] MEDS ORDERED: ACETAMINOPHEN 325 MG TAB PO PRN (12:37)
[2018-12-08] MEDS ORDERED: MORPHINE SULFATE INJ 10 MG/ML VIAL IV PRN (12:37)
[2018-12-08] MEDS ORDERED: MAGNESIUM HYDROXIDE 30 ML UD PO PRN (12:37)
[2018-12-08] MEDS ORDERED: ONDANSETRON INJ 4 MG/2 ML VIAL IV PRN (12:37)
[2018-12-08] MEDS ORDERED: TEMAZEPAM 15 MG CAP PO PRN (12:37)
[2018-12-08] MEDS ORDERED: ALUMINUM & MAGNESIUM HYDROXIDE 30 ML UD PO PRN (12:37)
[2018-12-08] MEDS ORDERED: MORPHINE PCA 1 MG/ML 100 ML BAG IVPB SCH (13:00)
[2018-12-08] MEDS ORDERED: IV SET AND CAP CHANGE INJ INJ SCH (13:00)
[2018-12-08] MEDS ORDERED: LACTATED RINGERS 1,000 ML IVS ONE ×2 (13:08→13:43)
[2018-12-08] MEDS: CLINDAMYCIN INJ (VIAL) 300 MG in SODIUM CHLORIDE 0.9% 50ML 50 ML IVPB SCH ×2 (15:50→20:50)
[2018-12-08] MEDS ORDERED: ceFAZolin SODIUM 2 GRAMS PREMI 2 GM in PREMIX BAG 1 BAG IVPB SCH (16:00)
[2018-12-08] MEDS: CELECOXIB 100 MG CAP PO SCH (17:19)
[2018-12-08] MEDS: VANCOMYCIN HCL INJ 1,000 MG in SODIUM CHLORIDE 0.9% 250ML 250 ML IVPB SCH (17:20)
[2018-12-08] MEDS ORDERED: SODIUM CHLORIDE 0.9% 1000ML 1,000 ML IVS PRN (17:23)
[2018-12-08] MEDS ORDERED: GLUCAGON INJ 1 MG VIAL SUBCU PRN (20:23)
[2018-12-08] MEDS ORDERED: DEXTROSE 50% 25 GM/50 ML SYG IV PRN (20:23)
[2018-12-08] MEDS ORDERED: CLINDAMYCIN PHOSPHATE 150 MG/ML VIAL ONE ×2 (20:36→20:45)
[2018-12-08] MEDS ORDERED: ENOXAPARIN SODIUM 30 MG/0.3 ML SYG SUBCU ONE (20:37)
[2018-12-08] MEDS ORDERED: metFORMIN HCL 500 MG TAB ONE (20:37)
[2018-12-08] MEDS ORDERED: SODIUM CHLORIDE 0.9% 50ML 50 ML ONE ×2 (20:38→20:45)
[2018-12-08] MEDS: DOCUSATE CALCIUM 240 MG CAP PO SCH (20:50)
[2018-12-08] MEDS: CARVEDILOL 3.125 MG TAB PO SCH (20:50)
[2018-12-08] MEDS: METFORMIN HCL 850 MG PO SCH (20:53)
[2018-12-08] MEDS: INSULIN LISPRO 100 UNITS/ML PEN SUBCU SCH (21:01)
[2018-12-08] MEDS ORDERED: ENOXAPARIN SODIUM 30 MG/0.3 ML SYG SUBCU SCH (23:00)
[2018-12-09] MEDS: CLINDAMYCIN INJ (VIAL) 300 MG in SODIUM CHLORIDE 0.9% 50ML 50 ML IVPB SCH ×3 (05:30→20:59)
[2018-12-09] MEDS: VANCOMYCIN HCL INJ 1,000 MG in SODIUM CHLORIDE 0.9% 250ML 250 ML IVPB SCH (05:35)
[2018-12-09] MEDS: INSULIN LISPRO 100 UNITS/ML PEN SUBCU SCH ×4 (07:46→20:59)
[2018-12-09] MEDS: CELECOXIB 100 MG CAP PO SCH ×2 (07:54→17:14)
[2018-12-09] MEDS: MAGNESIUM OXIDE 400 MG TAB PO SCH (07:55)
[2018-12-09] MEDS ORDERED: CLINDAMYCIN PHOSPHATE 150 MG/ML VIAL ONE ×2 (11:19→19:16)
[2018-12-09] MEDS ORDERED: SODIUM CHLORIDE 0.9% 50ML 50 ML ONE ×2 (11:20→19:17)
[2018-12-09] MEDS: CARVEDILOL 3.125 MG TAB PO SCH ×2 (11:31→20:59)
[2018-12-09] MEDS: CYANOCOBALAMIN 1,000 MCG TAB PO SCH (11:31)
[2018-12-09] MEDS: HYDROcodone 5MG/APAP 325MG 1 EA TAB PO PRN ×3 (11:31→21:14)
[2018-12-09] MEDS: B COMPLEX 1 EA TAB PO SCH (11:33)
[2018-12-09] MEDS ORDERED: RIVAROXABAN 10 MG TAB PO SCH (12:00)
[2018-12-09] MEDS: CHOLECALCIFEROL 2,000 IU TAB PO SCH (12:00)
[2018-12-09] MEDS: METFORMIN HCL 850 MG PO SCH (13:03)
[2018-12-09] MEDS: metFORMIN HCL 500 MG TAB PO SCH (17:14)
[2018-12-09] MEDS: SODIUM CHLORIDE 0.9% (FLUSH) 10 ML SYG IV SCH (21:00)
[2018-12-09] MEDS: DOCUSATE CALCIUM 240 MG CAP PO SCH (21:00)
[2018-12-09] MEDS ORDERED: SIMVASTATIN 20 MG TAB PO SCH (21:00)
[2018-12-10] MEDS ORDERED: SODIUM CHLORIDE 0.9% 50ML 50 ML ONE (03:36)
[2018-12-10] MEDS ORDERED: CLINDAMYCIN PHOSPHATE 150 MG/ML VIAL ONE (03:36)
[2018-12-10] MEDS: CLINDAMYCIN INJ (VIAL) 300 MG in SODIUM CHLORIDE 0.9% 50ML 50 ML IVPB SCH (04:53)
[2018-12-10] MEDS: HYDROcodone 5MG/APAP 325MG 1 EA TAB PO PRN (06:27)
[2018-12-10] MEDS: metFORMIN HCL 500 MG TAB PO SCH (07:12)
[2018-12-10] MEDS: CELECOXIB 100 MG CAP PO SCH (07:12)
[2018-12-10] MEDS: INSULIN LISPRO 100 UNITS/ML PEN SUBCU SCH ×2 (07:12→11:22)
[2018-12-10] MEDS: CHOLECALCIFEROL 2,000 IU TAB PO SCH (08:36)
[2018-12-10] MEDS: CARVEDILOL 3.125 MG TAB PO SCH (08:37)
[2018-12-10] MEDS: B COMPLEX 1 EA TAB PO SCH (08:37)
[2018-12-10] MEDS: CYANOCOBALAMIN 1,000 MCG TAB PO SCH (08:37)
[2018-12-10] MEDS: MAGNESIUM OXIDE 400 MG TAB PO SCH (08:37)
[2018-12-10] MEDS: SODIUM CHLORIDE 0.9% (FLUSH) 10 ML SYG IV SCH (08:37)
[2018-12-10] MEDS ORDERED: hydroCHLOROthiazide 25 MG TAB PO SCH (09:00)
[2018-12-10 10:15] VITALS: BP 107/69; TEMP 98.7; O2SAT 95
== END 2018-12-10 11:50 | disposition home or self-care (01) | DRG 483 ==
LOC: AMB 05:26 → MS 14:20
PROVIDERS: ADMIT Orthopaedic Surgery; ATTEND Nurse Practitioner Acute Care
PROC: 0RRK00Z Replacement of Left Shoulder Joint with Reverse Ball and Socket Synthetic Substitute, Open Approach (ICD-10-PCS; principal; 2018-12-08)
DX: M19.012 Primary osteoarthritis, left shoulder (principal); I50.30 Unspecified diastolic (congestive) heart failure; M75.102 Unspecified rotator cuff tear or rupture of left shoulder, not specified as traumatic; G62.9 Polyneuropathy, unspecified; I48.0 Paroxysmal atrial fibrillation; I25.10 Atherosclerotic heart disease of native coronary artery without angina pectoris; E78.5 Hyperlipidemia, unspecified; E11.9 Type 2 diabetes mellitus without complications; I11.0 Hypertensive heart disease with heart failure; Z96.651 Presence of right artificial knee joint; Z88.5 Allergy status to narcotic agent; Z88.0 Allergy status to penicillin; Z88.8 Allergy status to other drugs, medicaments and biological substances; Z91.048 Other nonmedicinal substance allergy status; Z79.01 Long term (current) use of anticoagulants; Z86.718 Personal history of other venous thrombosis and embolism; Z95.5 Presence of coronary angioplasty implant and graft; Z95.828 Presence of other vascular implants and grafts; Z87.891 Personal history of nicotine dependence; Z79.82 Long term (current) use of aspirin; Z79.84 Long term (current) use of oral hypoglycemic drugs; Z79.899 Other long term (current) drug therapy

== ENCOUNTER → 2019-02-10 | Outpatient (CLI) | payer MEDICARE ==
--- NOTE | 2019-02-11 08:33 | CT ---
Procedure: CT ABDOMEN PELVIS WITHOUT IV CONTRAST Exam Date: 02/10/2019 Ordering Provider: Charles Ibarra Clinical Indication: HEMATURIA Comparison: 07/12/2018 TECHNIQUE: 2.5mm images were taken through the abdomen and pelvis without the administration of nonionic intravenous contrast material. Oral contrast was not administered. Coronal and sagittal reformatted images were generated. This exam was performed according to our departmental dose optimization program which includes use of automated exposure control, adjustment of the mA and/or kV according to patient size and/or use of iterative reconstruction technique. FINDINGS: Lower chest: Nonacute Abdomen: Liver and biliary system: Liver has an unremarkable noncontrast appearance. Cholelithiasis. Spleen: Unremarkable Pancreas: Unremarkable Adrenal glands: Unremarkable Kidneys, ureters, bladder: 5 mm stone at the right UPJ. Additional punctate stones in the right kidney. Subcentimeter exophytic lesion in the right kidney is too small to characterize but likely a cyst. There are couple punctate stones in the left kidney. No hydronephrosis in either kidney. 16 mm left renal cyst. Ureters and urinary bladder are otherwise unremarkable. Lymph nodes: No lymphadenopathy by CT size criteria. Retroperitoneum, abdominal wall, peritoneal cavity: No ascites. No free air. Small fat-containing right inguinal hernia. Vessels: No abdominal aortic aneurysm. Stent in the left external iliac vein. Bowel: No bowel obstruction. Colonic diverticulosis without evidence of diverticulitis. Normal appendix. Pelvic organs: Prostate calcifications. Bones: No destructive bony lesions. Grade 1 anterolisthesis of L4 on L5. Multilevel spondylosis. IMPRESSION: 1. 5 mm stone at the right UPJ without hydronephrosis. 2. Additional nonobstructing stones in both kidneys. 3. Left renal cyst. 4. Cholelithiasis. Electronically signed by: Camacho Holguin MD 02/11/2019 8:31 AM CDT
== END ==
LOC: CT 15:27
PROVIDERS: ATTEND Family Medicine
DX: N20.2 Calculus of kidney with calculus of ureter (principal); K80.20 Calculus of gallbladder without cholecystitis without obstruction; N28.1 Cyst of kidney, acquired

== ENCOUNTER → 2019-03-22 | Outpatient (CLI) | payer MEDICARE ==
--- NOTE | 2019-03-22 14:41 | MRI ---
EXAM DESCRIPTION: Brain w/wo Contrast: Magnetic Resonance Imaging. CLINICAL HISTORY: BENIGN PAROXYSMAL VERTIGO COMPARISON: None. TECHNIQUE: Diffusion axial imaging of the brain. Multiplanar high-field unit, multiple conventional sequences through the IACs, and the brain, before and after 1 mL per 5 kg gadolinium IV contrast. No adverse reactions. FINDINGS: Normal signal in the IACs with no abnormal enhancement and no mass. No fluid in the mastoid air cells. Normal contour of the cerebellopontine angles with no mass, normal enhancement. Normal signal and enhancement of the brain stem. No hemorrhage, mass effect, or diffusion restriction. Normal flow signal void in the major vessels of the [place] and venous sinuses. Paranasal sinuses are show minimal subperiosteal thickening in the ethmoid air cells. Pituitary gland occupies approximately 50% of the sella compartment. Bony calvarium is intact. Base of the cerebellar tonsils is at the level of the foramen magnum. Bilateral minimal symmetric hyperintense FLAIR and T2-weighted signal in the periventricular white matter abutting the frontal horns of the lateral ventricles. Also in the bilateral frontal horn subcortical white matter, and at the junction of the anterior left ba radiata, and subcortical white matter posterior right frontal lobe. No hemorrhage, no cerebral edema, no mass-effect. Normal contrast enhancement. Normal signal in the bilateral basal ganglia. Normal signal in the cerebellar hemispheres. No hemorrhage, no mass-effect, no diffusion restriction. Normal enhancement. Concordance of the diffusion and non-diffusion sequences with no evidence of acute or subacute infarction. Cortical sulci, ventricles, and other CSF spaces, and the subdural spaces are concordant with the patient's age. No effacement or displacement. No midline shift. No extra-axial hemorrhage. IMPRESSION: 1. Normal signal and enhancement of the cerebellopontine angles, internal ear structures, cranial nerves and brainstem associated with vestibular cochlear functions. No abnormal contrast enhancement, no mass effect, no diffusion restriction. 2. Periventricular and subcortical white matter changes in the frontal lobes most likely related to aging or cerebral microvascular disease. No hemorrhage, no mass effect, no diffusion restriction, and normal enhancement. Electronically signed by: Rachid Sepulveda MD 03/22/2019 2:39 PM DESIGNATED [employer]ER
== END ==
LOC: MRI 09:00
PROVIDERS: ATTEND Family Medicine
DX: H81.13 Benign paroxysmal vertigo, bilateral (principal)

== ENCOUNTER 2019-04-29 11:50 | Emergency (ER) | payer MEDICARE ==
--- NOTE | 2019-04-29 13:28 | CT ---
EXAM DESCRIPTION: Abdoment/Pelvis w/o Contrast CLINICAL HISTORY: rlq pain 1 week, mild nausea, no fever COMPARISON: February 10, 2019 TECHNIQUE: Noncontrast transaxial CT images of the abdomen and pelvis are obtained. Images are degraded by streak artifact from the patient's arms limiting detailed evaluation. This exam was performed according to our departmental dose-optimization program, which includes automated exposure control, adjustment of the mA and/or kV according to patient size and/or use of iterative reconstruction technique . FINDINGS: Interval migration of the calcifications from the right renal pelvis into the proximal right ureter with mild to moderate right hydronephrosis. 2 calcifications are seen measuring 7 and 4 mm diameter at the level of the L3-4 disc space on the right. Tiny 1 or 2 mm nonobstructing calcifications are seen in calyces of the mid and upper right kidney with left calcification seen on previous. 3 mm nonobstructing calcification in an upper pole calyx of the left kidney is stable. Left renal cortical cyst is stable. Left ureter shows no abnormal calcification. Urinary bladder normally distended and unremarkable. Prostate shows mild calcifications. Moderate right fat-containing inguinal hernia is seen. Mild chronic interstitial thickening in the lung bases. The heart is enlarged with severe coronary artery calcifications. Noncontrast appearance of the liver, spleen, pancreas, and adrenal glands is unremarkable. 9 mm calcified gallstone in the neck of the gallbladder is seen with poor distention of the gallbladder similar to previous. Mild atherosclerotic disease. No bowel obstruction or inflammatory changes. Moderate scattered diverticuli of colon mainly in the descending to sigmoid region without inflammatory changes. Vascular stent in the left external iliac vein. Osseous structures show no aggressive bony lesions. Degenerative grade 1 anterolisthesis is seen at L4-5 with moderate to severe spondylitic changes of the spine. IMPRESSION: Interval development of mild to moderate right hydronephrosis secondary to 7 and 4 mm calcifications in the proximal right ureter. Nonobstructing bilateral nephrolithiasis is again seen, but decreased on the right from previous. Colon diverticulosis without CT evidence of diverticulitis. Cholelithiasis stable. Electronically signed by: Luis Alberto Ross MD 04/29/2019 1:26 PM [employer]
--- NOTE | 2019-04-29 13:44 | ED.PDOC ---
History of Present Illness - General Chief Complaint: Abdominal Pain Stated Complaint: LRQ abd pain and nausea Time Seen by Provider: 04/29/19 12:05 Source: patient Exam Limitations: no limitations - History of Present Illness Initial Comments: the patient is a 68-year-old male presenting to the emergency room secondary to mild to moderate right back pain and right inguinal pain for the last week. He has had a history of kidney stones. He did have some mild hematuria week or 2 ago. No fever. No dysuria. No syncope. occasional right testicular twinges of pain. No worse with movement. Timing/Duration: 1 week Severity: moderate Improving Factors: nothing Worsening Factors: nothing Associated Symptoms: denies symptoms Allergies/Adverse Reactions: Allergies Bee Venom Allergy (Verified 04/29/19 12:31) Iodine Allergy (Verified 04/29/19 12:31) Tramadol Allergy (Verified 04/29/19 12:31) Lisinopril Adverse Reaction (Verified 04/29/19 12:31) Penicillins Adverse Reaction (Verified 04/29/19 12:31) Home Medications: Ambulatory Orders Carvedilol 3.125 mg PO BID 05/03/18 Cholecalciferol [Vitamin D3] 1,000 unit PO DAILY 05/03/18 Cyanocobalamin [Vitamin B-12] 1,000 mcg PO DAILY 05/03/18 Metformin HCl [Metformin Hydrochloride] 850 mg PO BID 05/03/18 Nitroglycerin [Nitrostat] 0.4 mg SL Q5MIN PRN 05/03/18 Hydrochlorothiazide 25 mg PO .MO.WE.FRI 11/11/18 Rivaroxaban [Xarelto] 20 mg PO DAILY 12/03/18 Super B-Complex 1 tablet PO DAILY 12/03/18 HYDROcodone 5MG/APAP 325MG [[place] 5/325] 1 ea PO Q4H PRN tab 12/10/18 Vwsdafmygdoru-Fsqj-Oqevjwikpl [Fioricet] 1 ea PO Q8H PRN #21 tab 04/29/19 Tamsulosin HCl [Flomax] 0.4 mg PO DAILY #7 cap 04/29/19 Review of Systems - Review of Systems Constitutional: States: no symptoms reported EENTM: States: no symptoms reported Respiratory: States: no symptoms reported Cardiology: States: no symptoms reported Gastrointestinal/Abdominal: States: see HPI Genitourinary: States: see HPI Musculoskeletal: States: back pain Skin: States: no symptoms reported Neurological: States: no symptoms reported Endocrine: States: no symptoms reported Hematologic/Lymphatic: States: blood clots All other Systems: No Change from Baseline Past Medical History (General) - Patient Medical History Hx Seizures: No Hx Stroke: No Hx Asthma: No Hx of COPD: No Hx Cardiac Disorders: Yes - stent Hx Congestive Heart Failure: No Hx Pacemaker: No Hx Hypertension: Yes Hx Diabetes: Yes Hx Renal Disease: - Hx kidney stones Hx Cancer: No Hx MRSA: No Surgical History: other - Vaccination History Hx Tetanus, Diphtheria Vaccination: Yes Hx Influenza Vaccination: Yes Hx Pneumococcal Vaccination: Yes - Social History Hx Tobacco Use: Yes Hx Alcohol Use: No Hx Substance Use: No Hx Substance Use Treatment: No Hx Depression: No Hx Physical Abuse: No Hx Emotional Abuse: No - Female History Patient is a Female of Child Bearing Age (10 -59 yrs old): No Patient : No Family Medical History - Family History Father Family History: Unknown Living Status: Hx Family Cancer: Yes - dad-brain Physical Exam - Physical Exam General Appearance: Alert, Comfortable, No apparent distress Eye Exam: bilateral normal Ears, Nose, Throat: hearing grossly normal, normal pharynx Neck: full range of motion, supple Respiratory: lungs clear, normal breath sounds, no respiratory distress, no accessory muscle use Cardiovascular/Chest: normal peripheral pulses, no edema, other - regular rate Peripheral Pulses: radial,right: 2+, radial,left: 2+ Gastrointestinal/Abdominal: non tender, soft, other - no definite right lower quadrant tenderness to palpation and no definite palpable mass or hernia. Rectal Exam: deferred Back Exam: no CVA tenderness, no vertebral tenderness Extremity: non-tender, normal inspection, no pedal edema, normal capillary refill Neurologic: dean of women II-XII nml as tested, alert, normal mood/affect, oriented x 3 Skin Exam: normal color Comments: Vital Signs - 24 hr 04/29/19 04/29/19 04/29/19 11:50 11:51 13:00 Temperature 97.1 F L Pulse Rate [ 70 70 64 Pulse ox] Respiratory 18 18 Rate Blood Pressure 149/90 150/83 [L brachial] O2 Sat by Pulse 98 97 Oximetry Progress - Progress Progress: 04/29/19 13:45 the patient is 68-year-old male presenting to the emergency room secondary to right flank and inguinal pain for about a week. He does have a 7 mm and a 4 mm stone about fdc down the right ureter. This is the most likely cause of his discomfort. He does incidentally have a small right inguinal fat containing hernia as noted on the CT scan. The patient will be written for Flomax for one week as well as some Fioricet for discomfort relief. He can take Aleve 2 tablets twice daily with some food for the next week as well. He needs to keep himself well hydrated. He needs to call Dr. Menjivar tomorrow and set up an appointment for next week for reevaluation. Renal function in general looks good. No evidence of infection. ER warnings were given for any obvious worsening. sundeep serna [id number] - Results/Orders Results/Orders: Laboratory Tests 04/29/19 04/29/19 04/29/19 12:44 12:44 13:15 WBC 5.8 RBC 5.00 Hgb 14.9 Hct 44.0 MCV 88.0 MCH 29.8 MCHC 33.8 RDW 13.2 Plt Count 134 MPV 9.0 Absolute Neuts (auto) 3.60 Absolute Lymphs (auto) 1.40 Absolute Monos (auto) 0.50 Absolute Eos (auto) 0.30 Absolute Basos (auto) 0.00 Neutrophils % 61.2 Lymphocytes % 23.9 Monocytes % 9.3 H Eosinophils % 5.0 Basophils % 0.6 Sodium 140 Potassium 4.4 Chloride 101 Carbon Dioxide 30 Anion Gap 13.4 BUN 12 Creatinine 1.22 BUN/Creatinine Ratio 9.8 L Random Glucose 228 H Serum Osmolality 286.4 Calcium 9.8 Total Bilirubin 1.1 H AST 24 ALT 22 Alkaline Phosphatase 47 Serum Total Protein 6.7 Albumin 3.8 Globulin 2.9 Albumin/Globulin Ratio 1.3 Urine Color Yellow Urine Appearance Clear Urine pH 6.0 Ur Specific [place] 1.020 Urine Protein Negative Urine Glucose (UA) Negative Urine Ketones Negative Urine Blood Moderate H Urine Nitrite Negative Urine Bilirubin Negative Urine Urobilinogen 0.2 Ur Leukocyte Esterase Negative Urine RBC 10-20 H Urine WBC 0-1 Ur Epithelial Cells 0-[address] scan of abdomen and pelvis without contrast shows a 7 mm and 4 mm kidney stones in the right mid to distal third ureter. Mild proximal hydronephrosis. See CT report for further details. Departure - Departure Clinical Impression: Calcium ureterolithiasis Inguinal hernia Qualifiers: Obstruction and gangrene presence: without obstruction or gangrene Laterality: unilateral Recurrence: non-recurrent Qualified Code(s): K40.90 - Unilateral inguinal hernia, without obstruction or gangrene, not specified as recurrent Disposition: Discharge to Home or Self Care Condition: Fair Departure Forms: ED Discharge - Pt. Copy, Patient Portal Self Enrollment Instructions: Kidney Stones (DC) Diet: diabetic diet Activity: increase activity as tolerated Referrals: Charles Ibarra III, MD [Primary Care Provider] - 1-2 Weeks Prescriptions: Wdlawtyxnihec-Osgc-Onwetestsi [Fioricet] 1 ea PO Q8H PRN #21 tab PRN Reason: Pain Tamsulosin HCl [Flomax] 0.4 mg PO DAILY #7 cap Home Medications: Ambulatory Orders Carvedilol 3.125 mg PO BID 05/03/18 Cholecalciferol [Vitamin D3] 1,000 unit PO DAILY 05/03/18 Cyanocobalamin [Vitamin B-12] 1,000 mcg PO DAILY 05/03/18 Metformin HCl [Metformin Hydrochloride] 850 mg PO BID 05/03/18 Nitroglycerin [Nitrostat] 0.4 mg SL Q5MIN PRN 05/03/18 Hydrochlorothiazide 25 mg PO .MO.WE.Thu11/11/18 Rivaroxaban [Xarelto] 20 mg PO DAILY 12/03/18 Super B-Complex 1 tablet PO DAILY 12/03/18 HYDROcodone 5MG/APAP 325MG [[place] 5/325] 1 ea PO Q4H PRN tab 12/10/18 Oabfxiwgzzkig-Mgqd-Tdzjuormnc [Fioricet] 1 ea PO Q8H PRN #21 tab 04/29/19 Tamsulosin HCl [Flomax] 0.4 mg PO DAILY #7 cap 04/29/19 Additional Instructions: the patient is 68-year-old male presenting to the emergency room secondary to right flank and inguinal pain for about a week. He does have a 7 mm and a 4 mm stone about fdc down the right ureter. This is the most likely cause of his discomfort. He does incidentally have a small right inguinal fat containing hernia as noted on the CT scan. The patient will be written for Flomax for one week as well as some Fioricet for discomfort relief. He can take Aleve 2 tablets twice daily with some food for the next week as well. He needs to keep himself well hydrated. He needs to call Dr. Menjivar tomorrow and set up an appointment for next week for reevaluation. Renal function in general looks good. No evidence of infection. ER warnings were given for any obvious worsening.
[2019-04-29 14:35] VITALS: BP 124/81; TEMP 97.3; O2SAT 96
== END 2019-04-29 14:07 | disposition home or self-care (01) ==
LOC: ER 11:50
DX: N13.2 Hydronephrosis with renal and ureteral calculous obstruction (principal); K40.90 Unilateral inguinal hernia, without obstruction or gangrene, not specified as recurrent; I51.9 Heart disease, unspecified; I10 Essential (primary) hypertension; E11.9 Type 2 diabetes mellitus without complications; Z87.442 Personal history of urinary calculi; Z87.891 Personal history of nicotine dependence; Z79.84 Long term (current) use of oral hypoglycemic drugs; Z79.899 Other long term (current) drug therapy; Z91.041 Radiographic dye allergy status; Z88.5 Allergy status to narcotic agent; Z88.8 Allergy status to other drugs, medicaments and biological substances; Z88.0 Allergy status to penicillin

== ENCOUNTER → 2019-05-31 | Outpatient (CLI) | payer MEDICARE ==
--- NOTE | 2019-05-31 10:36 | US ---
EXAM DESCRIPTION: Venous,Lower Extremity LT: ULTRASOUND. CLINICAL HISTORY: CAUSALGIA OF LEFT LOWER LIMB COMPARISON: None Available. TECHNIQUE: Mcfadden-scale and doppler sonographic evaluation of the deep venous system of the left lower extremity. FINDINGS: Doppler evaluation shows normal color flow and normal phasicity and augmentation of the left common femoral vein, femoral vein, popliteal vein, greater saphenous vein, junction with the CFV. Also normal color flow and normal phasicity and augmentation of the peroneal, and posterior tibial vein. The left lower extremity deep veins were completely compressible; normal occlusion with transducer pressure. Mcfadden-scale survey showed no echogenic thrombus within these veins. IMPRESSION: 1. Duplex ultrasound evaluation of the left lower extremity deep venous system showing no evidence of thrombosis. Electronically signed by: Rachid Sepulveda MD 05/31/2019 10:34 AM [facility]
== END ==
LOC: GMAJS 09:16
PROVIDERS: ATTEND Physician Assistant
DX: R60.0 Localized edema (principal); G57.72 Causalgia of left lower limb

== ENCOUNTER → 2019-11-07 | Outpatient (CLI) | payer MEDICARE ==
--- NOTE | 2019-11-07 09:59 | RAD ---
EXAM DESCRIPTION: Shoulder,Left 2 or More Views CLINICAL HISTORY: SHOULDER PAIN LEFT COMPARISON: December 08, 2018 TECHNIQUE: Three views of the left shoulder. 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 The chest wall is intact. No fracture or dislocation is noted and AC joint appears normally aligned. The bones are moderately osteopenic. Postsurgical changes seen on study one year earlier have resolved. IMPRESSION: 1. Satisfactory alignment of reverse shoulder prosthesis. No acute abnormality noted. Electronically signed by: Quirino Bonner MD 11/07/2019 9:57 AM CDT
== END ==
LOC: RAD 07:59
PROVIDERS: ATTEND Orthopaedic Surgery
DX: M25.512 Pain in left shoulder (principal); Z96.612 Presence of left artificial shoulder joint

== ENCOUNTER → 2020-06-08 | Outpatient (CLI) | payer MEDICARE ==
--- NOTE | 2020-06-09 13:07 | RAD ---
EXAM: Hip,Left 2 Views CLINICAL HISTORY: HIP PAIN COMPARISON STUDY: None TECHNICAL: AP pelvis and 2 x-ray images of the left hip. FINDINGS: The pelvic ring is intact. Both hips are in anatomic alignment. No joint space loss or significant degenerative change of the left hip. A left iliac stent is present. The visible lower lumbar spine shows degenerative change. IMPRESSION: Negative adult pelvis and left hip. Electronically signed by: Dany Donohue MD 06/09/2020 1:06 PM [facility]
--- NOTE | 2020-06-11 09:12 | RAD ---
EXAM DESCRIPTION: Pelvis CLINICAL HISTORY: 69 years Male, HIP PAIN COMPARISON: None. FINDINGS: X-ray pelvis shows vascular stent on the left. Phlebolith on the right. Enthesopathy of the right iliac wing more than left. Mild degenerative changes lower lumbar spine. No hip fracture or dislocation. Bones of the pelvic ring appear intact. Intact sacrum with degenerative changes of the left more than right SI joints. IMPRESSION: Negative for fracture or dislocation. Electronically signed by: Ashutosh Varela MD 06/11/2020 9:10 AM [facility]
== END ==
LOC: RAD 07:50
PROVIDERS: ATTEND Orthopaedic Surgery
DX: M25.552 Pain in left hip (principal)